=== PATIENT | female | born 2000 | race Caucasian/White ===

== ENCOUNTER 2025-02-27 14:51 | Inpatient (IN) | payer OTHER ==
[~2025-02-27] VITALS: Ht 160 cm; Wt 69.4 kg
[2025-03-03 09:15] VITALS: BP 119/75
[2025-03-03 10:47] VITALS: BP 119/75
[2025-03-03 20:40] VITALS: BP 116/74; TEMP 97.4; O2SAT 97
[2025-03-03] MEDS ORDERED: REMEDY ESSENTIAL ZINC PASTE 113 GM TOP PRN (22:30)
[2025-03-04] MEDS ORDERED: ERTA1VIA4 IV (02:36)
[2025-03-04] MEDS ORDERED: GABA300C PO (02:36)
[2025-03-04] MEDS ORDERED: FAMO20TA8 PO (02:36)
[2025-03-04] MEDS ORDERED: SENN8.6T19 PO (02:36)
[2025-03-04] MEDS ORDERED: POLY250017 PO (02:36)
[2025-03-04] MEDS ORDERED: ONDA-104 PO (02:36)
[2025-03-04] MEDS ORDERED: THIA100T78 PO (02:54)
[2025-03-04 06:34] VITALS: BP 110/70; TEMP 98.5; O2SAT 99
[2025-03-04 07:57] LABS: PLATELET COUNT (AUTO) 363 K/uL (179-408); RED BLOOD CELL COUNT(AUTO) 4.30 MIL/uL (3.63-4.92); RED CELL DISTRIBUTION WIDTH 14.7 % (12.3-17.7); WHITE BLOOD COUNT (AUTO) 7.9 K/uL (3.8-11.8)
[2025-03-04 08:17] LABS: CREATININE 0.6 mg/dL (0.6-1.3); SODIUM SERUM 140.0 mmol/L (136-145); UREA NITROGEN, BLOOD 14.0 mg/dL (7-18)
[2025-03-04] MEDS ORDERED: MULT-213 PO (09:03)
[2025-03-04 09:18] VITALS: BP 109/64; TEMP 98; O2SAT 100
[2025-03-04] MEDS: THIAMINE HCL 100 MG TABLET PO SCH (12:35)
[2025-03-04] MEDS: GABAPENTIN 300 MG CAPSULE PO SCH (12:35)
[2025-03-04] MEDS: MULTIVIT, IRON, MIN NO. 8, FA TABLET PO SCH (12:35)
[2025-03-04] MEDS: GOLYTELY 4000 ML BOTTLE PO ONE (13:38)
[2025-03-04] MEDS: MEROPENEM 1 G in IV NORMAL SALINE 100 ML IV SCH (13:56)
[2025-03-04] MEDS ORDERED: MEROPENEM 1 G in IV NORMAL SALINE 100 ML IV SCH (14:00)
[2025-03-04 16:33] VITALS: BP 114/83; TEMP 98.5; O2SAT 100
[2025-03-04] MEDS: FAMOTIDINE 20 MG TABLET PO SCH (16:38)
[2025-03-04] MEDS: MIRALAX 17 GM POWD.PACK PO SCH (16:38)
[2025-03-04] MEDS ORDERED: Medication Not On Formulary EA (Polyethylene Glycol 3350 17 GM) PO SCH (17:00)
[2025-03-04] MEDS: SENNOSIDES 1 TABLET PO SCH (20:52)
[2025-03-04 21:06] VITALS: BP 111/74; TEMP 97.7; O2SAT 100
[2025-03-05 05:51] VITALS: BP 110/71; TEMP 98.4; O2SAT 98
[2025-03-05 08:00] VITALS: BP 101/67; TEMP 97.9; O2SAT 100
[2025-03-05] MEDS ORDERED: Medication Not On Formulary EA (Multivitamins W-Minerals (Multivitamin With Minerals) 1 PO SCH (09:00)
[2025-03-05] MEDS: MEROPENEM 1 G in IV NORMAL SALINE 100 ML IV SCH (13:21)
== END 2025-03-05 14:33 | disposition short-term general hospital (02) | DRG 351 ==
PROVIDERS: ADMIT Physical Medicine & Rehabilitation Pain Medicine; ATTEND Physical Medicine & Rehabilitation Pain Medicine
DX: M21.372 Foot drop, left foot (principal); G04.91 Myelitis, unspecified; I21.A1 Myocardial infarction type 2; G31.2 Degeneration of nervous system due to alcohol; M21.332 Wrist drop, left wrist; M21.331 Wrist drop, right wrist; R53.1 Weakness; T40.411D Poisoning by fentanyl or fentanyl analogs, accidental (unintentional), subsequent encounter; T79.6XXD Traumatic ischemia of muscle, subsequent encounter; X58.XXXD Exposure to other specified factors, subsequent encounter
CPT/HCPCS: 36415; 85025; A4663; J2185; J7040